=== PATIENT | female | born 1945 | race Caucasian/White ===

== ENCOUNTER 2018-09-08 18:42 | Inpatient (IN) ==
[2018-09-08 19:38] LABS: Alanine Aminotransferase 36 U/L (10-53); Albumin 3.7 g/dL (3.4-5.0); Anion Gap 9 meq/L (5-15); Aspartate Aminotransferase 24 U/L (15-37); Blood Urea Nitrogen 10 mg/dL (7-18); Calcium 8.4 mg/dL (8.5-10.1); Carbon Dioxide 25.7 meq/L (21.0-32.0); Chloride 104 meq/L (98-107); Glomerular Filtration Rate 56 mL/min (>89); Glucose,Random 122 mg/dL (74-106); Potassium 3.6 meq/L (3.5-5.1); Sodium 139 meq/L (136-145)
[2018-09-08 19:41] LABS: Alkaline Phosphatase 75 U/L (45-117); Total Protein 7.4 g/dL (6.4-8.2)
--- NOTE | 2018-09-08 19:48 | ED ---
HPI General Chief Complaint: Fall Stated Complaint: Fall Time Seen by Provider: 09/08/18 19:02 Source: patient Mode of arrival: EMS Limitations: other (h/o frontal lobe dementia) History of Present Illness HPI Narrative: 72-year-old female with a history of frontal lobe dementia, hypertension, hyperlipidemia presents to the emergency department via [facility] for evaluation of right hip pain that started after a fall from a vehicle today. Her , Paul, assists with the history. He says that they drove down from [place] for [place] just a couple of days ago. He says patient was getting into the car when she fell and landing on her right hip. Both and patient denies trauma elsewhere. Denies back pain, knee pain. Denies numbness or tingling the extremity. EVAC states she was given morphine 10 mg with minimal improvement in pain. There is a questionable history of alcohol consumption however, patient and deny consumption today. MD complaint: Reports fall Onset (ago): hour(s) Fall from: standing Fall witnessed: yes, by family Place fall occurred: street Loss of consciousness: none Prolonged down time: no Symptoms prior to fall: Reports none Context: Reports tripped/slipped Location of injury: Reports pelvis Location of injury - extremities: Right: thigh Severity: severe Quality: Reports aching Associated symptoms (after fall): Reports denies Related Data Home Medications Medication Instructions Recorded Confirmed atorvastatin 10 mg PO DAILY 09/08/18 09/08/18 estradiol [Yuvafem] 10 mcg VAGINAL DAILY 09/08/18 09/08/18 telmisartan 80 mg PO DAILY 09/08/18 09/08/18 Allergies Allergy/AdvReac Type Severity Reaction Status Date / Time No Known Allergies Allergy Verified 09/08/18 19:01 Review of Systems ROS: all other systems reviewed are negative [facility] Medical History Medical History Frontal lobe dementia (Acute) Hyperlipemia (Acute) Surgical History Surgical History History of tonsillectomy (Acute) Social History Social History Smoking Status: Former smoker Tobacco Type: Cigarettes How Often Do You Have a Drink Containing Alcohol: Monthly or less Recent Travel in [facility] within the Last 8 Weeks: No Recent Out of Country Travel within the Last 8 Weeks: No Immunization History Tetanus Immunization: <5 Years Exam Narrative Exam Narrative: GENERAL: WD,WN in mild distress SKIN: Warm and dry. HEAD: Atraumatic. Normocephalic. EYES: Pupils equal and round. No scleral icterus. No injection or drainage. ENT: No nasal bleeding or discharge. Mucous membranes pink and moist. NECK: Trachea midline. No JVD. CARDIOVASCULAR: Regular rate and rhythm. RESPIRATORY: No accessory muscle use. Clear to auscultation. Breath sounds equal bilaterally. GASTROINTESTINAL: Abdomen soft, non-tender, nondistended. Hepatic and splenic margins not palpable. MUSCULOSKELETAL: Extremities without clubbing, cyanosis, or edema. Right lower extremity-externally rotated and slightly shortened, dorsalis pedis pulses present, sensation intact to light touch NEUROLOGICAL: Awake and alert. No obvious cranial nerve deficits. Motor grossly within normal limits. Five out of 5 muscle strength in the arms and legs. Normal speech. Course Initial Documented Vital Signs Temperature 97.4 F L 09/08/18 19:02 Pulse Rate 68 09/08/18 19:02 Respiratory Rate 14 09/08/18 19:02 Blood Pressure 110/89 09/08/18 19:02 Last Documented Vital Signs Temperature 97.4 F L 09/08/18 19:02 Pulse Rate 80 09/08/18 21:41 Respiratory Rate 19 09/08/18 21:41 Blood Pressure 120/62 09/08/18 21:41 Pulse Oximetry 100 09/08/18 21:41 Medical Decision Making MDM Narrative Medical decision making narrative: 72-year-old female with a history of frontal lobe dementia, hypertension, hyperlipidemia presents to the emergency department for evaluation via [facility] for right hip pain. She states she was getting to the car when she fell and hit her right hip. Denies pain or trauma elsewhere. Denies numbness or tingling the extremity. EVAC gave 10 mg of morphine with minor improvement in pain. As I was evaluating patient, she appeared anxious and her , Paul, agreed. He believed that patient needed a medication to help relax. Ordered 1 mg of Ativan with improvement in patient's symptoms. EKG sinus rhythm rate 91 without STEMI changes. Labs are notable for WBC 11.6, INR 1.0, BUN/creatinine 10/0.97. X-rays consistent with a right comminuted intertrochanteric fracture. I spoke with Dr. Wesley who agreed to the admission. Dr. Armas came to the emergency department to evaluate this patient. He advised n.p.o. after midnight. Patient remains comfortable. Medical Screen Exam Complete: Yes Emergency Medical Condition: Yes Differential Diagnosis Differential Diagnosis: Right intertrochanteric fracture, hip fracture, hip contusion Lab Data Result diagrams: 09/08/18 21:00 09/08/18 19:05 Lab Results 09/08/18 09/08/18 09/08/18 Range/Units 19:05 21:00 21:00 WBC 11.6 H (4.0-11.0) th/mm3 RBC 4.37 (4.00-5.30) mil/mm3 Hgb 13.3 (11.6-15.3) gm/dL Hct 39.8 (35.0-46.0) % MCV 91.1 (80.0-100.0) fL MCH 30.4 (27.0-34.0) pg MCHC 33.4 (32.0-36.0) % RDW 12.7 (11.6-17.2) % Plt Count 262 (150-450) th/mm3 MPV 8.5 (7.0-11.0) fL Neut % (Auto) 85.4 H (16.0-70.0) % Lymph % (Auto) 7.6 L (9.0-44.0) % [place] % (Auto) 6.1 (0.0-8.0) % Eos % (Auto) 0.6 (0.0-4.0) % Baso % (Auto) 0.3 (0.0-2.0) % Neut # (Auto) 9.9 H (1.8-7.7) th/mm3 Lymph # (Auto) 0.9 L (1.0-4.8) th/mm3 [place] # (Auto) 0.7 (0.0-0.9) th/mm3 Eos # (Auto) 0.1 (0.0-0.4) th/mm3 Baso # (Auto) 0.0 (0.0-0.2) th/mm3 WBC Differential . Differential Comment Auto diff final PT 10.1 (9.8-11.6) sec INR 1.0 Ratio APTT 20.4 L (24.3-30.1) sec Sodium 139 (136-145) meq/L Potassium 3.6 (3.5-5.1) meq/L Chloride 104 (98-107) meq/L Carbon Dioxide 25.7 (21.0-32.0) meq/L Anion Gap 9 (5-15) meq/L BUN 10 (7-18) mg/dL Creatinine 0.97 (0.50-1.00) mg/dL Estimated GFR 56 L (>89) mL/min Random Glucose 122 H (74-106) mg/dL Calcium 8.4 L (8.5-10.1) mg/dL Total Bilirubin 0.7 (0.2-1.0) mg/dL AST 24 (15-37) U/L ALT 36 (10-53) U/L Alkaline Phosphatase 75 (45-117) U/L Total Protein 7.4 (6.4-8.2) g/dL Albumin 3.7 (3.4-5.0) g/dL Imaging Data Radiologist's impression: Chest X-Ray 09/08/18 19:01 CONCLUSION: 1. Linear atelectasis/scarring in the left lingula. 2. Lungs are otherwise clear. Femur X-Ray 09/08/18 19:02 CONCLUSION: Comminuted intratrochanteric fracture of the right hip. Pelvis X-Ray 09/08/18 19:02 CONCLUSION: 1. Comminuted intratrochanteric fracture of the right hip. 2. Pelvis itself is intact. Discharge Plan Discharge Disposition Patient Disposition: 30 Still Patient Discharge Condition Condition: Stable Discharge Details Diagnosis: Closed intertrochanteric fracture Physicians Team ED Provider: Ariadna Siu ED Midlevel Provider: Cait Grace Attending Provider: Jimena Pepe Status ED Status: Admitted Patient
--- NOTE | 2018-09-08 19:55 | XR ---
EXAM DATE: 09/08/2018 7:01 PM EDT AGE/SEX: 72 years / Female INDICATIONS: Evaluate for pneumonia, pneumothorax, or communicable disease. Pre op hip surgery. CLINICAL DATA: This is the patient's initial encounter. Patient reports that signs and symptoms have been present for 1 day and indicates a pain score of 0/10. MEDICAL/SURGICAL HISTORY: None. None. COMPARISON: No prior exams available for comparison. FINDINGS: A single AP view of the chest demonstrates the lungs to be symmetrically aerated with some linear ate lectasis or scarring in the left lingula. Lungs are otherwise clear. The cardiomediastinal contours are unremarkable. Osseous structures are intact. CONCLUSION: 1. Linear atelectasis/scarring in the left lingula. 2. Lungs are otherwise clear. Electronically signed by: Gumaro Gomez MD 09/08/2018 7:53 PM EDT
--- NOTE | 2018-09-08 20:02 | XR ---
EXAM DATE: 09/08/2018 7:02 PM EDT AGE/SEX: 72 years / Female INDICATIONS: Right femur pain after fall. CLINICAL DATA: This is the patient's initial encounter. Patient reports that signs and symptoms have been present for 1 day and indicates a pain score of 10/10. MEDICAL/SURGICAL HISTORY: None. None. COMPARISON: [facility], PELVIS AP 1V, 09/08/2018. . FINDINGS: Comminuted intratrochanteric fracture of the right hip. Femoral acetabular articulation is preserved. . CONCLUSION: Comminuted intratrochanteric fracture of the right hip. Electronically signed by: Gumaro Gomez MD 09/08/2018 8:01 PM EDT
--- NOTE | 2018-09-08 20:03 | XR ---
EXAM DATE: 09/08/2018 7:02 PM EDT AGE/SEX: 72 years / Female INDICATIONS: Pelvic pain after fall. CLINICAL DATA: This is the patient's initial encounter. Patient reports that signs and symptoms have been present for 1 day and indicates a pain score of 10/10. MEDICAL/SURGICAL HISTORY: None. None. COMPARISON: No prior exams available for comparison. FINDINGS: Comminuted intratrochanteric fracture of the right hip. Right femoral acetabular articulation is pres erved. Cortical margins of the pelvis are intact. There is an ossific well-corticated fragment of gre ater trochanter on the left probably representing an old avulsion injury or ossific tendinopathy CONCLUSION: 1. Comminuted intratrochanteric fracture of the right hip. 2. Pelvis itself is intact. Electronically signed by: Gumaro Gomez MD 09/08/2018 8:02 PM EDT
[2018-09-08 21:33] LABS: Baso % (Auto) 0.3 % (0.0-2.0); Eos # (Auto) 0.1 th/mm3 (0.0-0.4); Eos % (Auto) 0.6 % (0.0-4.0); Hematocrit 39.8 % (35.0-46.0); Hemoglobin 13.3 gm/dL (11.6-15.3); Lymph # (Auto) 0.9 th/mm3 (1.0-4.8); Lymph % (Auto) 7.6 % (9.0-44.0); Mean Corpuscular HGB Conc 33.4 % (32.0-36.0); Mean Corpuscular Hemoglobin 30.4 pg (27.0-34.0); Mean Corpuscular Volume 91.1 fL (80.0-100.0); Mean Platelet Volume 8.5 fL (7.0-11.0); Mono # (Auto) 0.7 th/mm3 (0.0-0.9); Mono % (Auto) 6.1 % (0.0-8.0); Neut # (Auto) 9.9 th/mm3 (1.8-7.7); Neut % (Auto) 85.4 % (16.0-70.0); Platelet Count 262 th/mm3 (150-450); Red Blood Count 4.37 mil/mm3 (4.00-5.30); Red Cell Distribution Width 12.7 % (11.6-17.2); White Blood Count 11.6 th/mm3 (4.0-11.0)
[2018-09-08 21:45] LABS: Prothrombin Time 10.1 sec (9.8-11.6)
[2018-09-08 21:49] LABS: Activated Partial Thrombo Time 20.4 sec (24.3-30.1)
[2018-09-08] MEDS ORDERED: Acetaminophen 325 MG Tablet PO PRN (22:18)
[2018-09-08] MEDS ORDERED: Bisacodyl 10 MG Supp RECTAL PRN (22:18)
[2018-09-08] MEDS ORDERED: Morphine Inj 4 MG/ML Vial IV.PUSH PRN (22:19)
--- NOTE | 2018-09-08 22:20 | P.HPIM ---
History of Present Illness Primary Care Physician: JORDI ALEMAN History of Present Illness: This is a 72-year-old female with a PMH of HTN, Hyperlipidemia and Dementia who was brought to the ER by EMS for right hip pain after a fall. Pt poor historian due to underlying dementia. Per at bedside, they are [place] from out of town for a [place] and pt had fall while getting out of the car. No reported LOC or head trauma. On arrival, P1 , HR 68, O2 sat 100% on 2L NC, Afebrile. WBC 11.6. INR 1.0. Chemistry essentially unremarkable except for GFR 56. CXR linear atelectasis/scarring in left lingula. X-ray comminuted intertrochanteric fracture right hip. Pelvis X-ray pelvis intact, right hip fracture. S/p eval by Dr. Armas, plan is for surgical intervention in am. - Diagnosis (1) Fall (2) Hip fracture, right (3) Leukocytosis (4) Dementia Review of Systems PAST FAMILY HISTORY: Reviewed. 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 - Medical History Medical History: Medical History (Last Reviewed 09/08/18 @ 19:47 by NORBERT Post) Frontal lobe dementia Hyperlipemia - Surgical History Surgical History: Surgical History (Last Updated 09/08/18 @ 19:05 by Nichole Bergman) History of tonsillectomy - Tobacco History Smoking Status: Former smoker Tobacco Type: Cigarettes - Alcohol History How Often Do You Have a Drink Containing Alcohol: Monthly or less - Travel History Recent Travel in the [place] Within the Last 8 Weeks: No Recent Travel Out of the Country Within the Last 8 Weeks: No - Immunization History Tetanus Immunization: <5 Years Medications and Allergies Active Medications: Active Medications Sodium Chloride (Ns Flush) 2 ml IV.FLUSH UNSCH PRN PRN Reason: FLUSH AFTER USING IV ACCESS Allergies Allergy/AdvReac Type Severity Reaction Status Date / Time No Known Allergies Allergy Verified 09/08/18 19:01 Home Medications Medication Instructions Recorded Confirmed Type atorvastatin 10 mg PO DAILY 09/08/18 09/08/18 History estradiol [Yuvafem] 10 mcg VAGINAL DAILY 09/08/18 09/08/18 History telmisartan 80 mg PO DAILY 09/08/18 09/08/18 History Exam Vital signs: Vital Signs 09/08/18 19:02 09/08/18 21:41 Temperature 97.4 F L Pulse Rate 68 80 Respiratory Rate 14 19 Blood Pressure 110/89 120/62 Pulse Oximetry 100 Intake & Output 09/08/18 09/08/18 09/09/18 06:59 18:59 06:59 Weight 76.81 kg Narrative: PE: GENERAL: Elderly white female in no acute distress, lethargic after receiving Ativan. SKIN: Focused skin assessment warm and dry. HEENT: PERRLA, EOMI. No scleral icterus or conjunctival pallor. No lid lag or facial droop. CARDIOVASCULAR: Regular rate and rhythm. No obvious murmurs to auscultation. No chest tenderness to palpation. RESPIRATORY: No obvious rhonchi or wheezing. Clear to auscultation. Breath sounds equal bilaterally. GASTROINTESTINAL: Abdomen soft, non-tender, nondistended. BS normal. MUSCULOSKELETAL: Extremities without clubbing, cyanosis, or edema. No obvious deformities. Decreased ROM of RLE due to injury. NEUROLOGICAL: Lethargic after medication. No focal neurologic deficits. Moving both upper and lower extremities spontaneously. PSYCHIATRIC: Appropriate mood and affect. Insight and judgment normal. Results - Labs CBC & Chem 7: 09/08/18 21:00 09/08/18 19:05 Labs: Short CBC 09/08/18 Range/Units 21:00 WBC 11.6 H (4.0-11.0) th/mm3 Hgb 13.3 (11.6-15.3) gm/dL Hct 39.8 (35.0-46.0) % Plt Count 262 (150-450) th/mm3 BMP 09/08/18 19:05 Sodium 139 Potassium 3.6 Chloride 104 Carbon Dioxide 25.7 BUN 10 Creatinine 0.97 Calcium 8.4 L Liver Function 09/08/18 Range/Units 19:05 Total Bilirubin 0.7 (0.2-1.0) mg/dL AST 24 (15-37) U/L ALT 36 (10-53) U/L Alkaline Phosphatase 75 (45-117) U/L Albumin 3.7 (3.4-5.0) g/dL - Imaging Impressions Chest X-Ray 09/08/18 19:01 CONCLUSION: 1. Linear atelectasis/scarring in the left lingula. 2. Lungs are otherwise clear. Femur X-Ray 09/08/18 19:02 CONCLUSION: Comminuted intratrochanteric fracture of the right hip. Pelvis X-Ray 09/08/18 19:02 CONCLUSION: 1. Comminuted intratrochanteric fracture of the right hip. 2. Pelvis itself is intact. Caprini VTE Risk Assessment Caprini VTE Risk Assessment: No/Low Risk (score <= 1) Caprini Risk Assessment Model: Point Value = 1 Point Value = 2 Point Value = 3 Point Value = 5 Age 41-60 Minor surgery BMI > 25 kg/m2 Swollen legs Varicose veins or History of unexplained or recurrent spontaneous Oral contraceptives or hormone replacement Sepsis (< 1 month) Serious lung disease, including pneumonia (< 1 month) Abnormal pulmonary function Acute myocardial infarction Congestive heart failure (< 1 month) History of inflammatory bowel disease Medical patient at bed rest Age 61-74 Arthroscopic surgery Major open surgery (> 45 min) Laparoscopic surgery (> 45 min) Malignancy Confined to bed (> 72 hours) Immobilizing plaster cast Central venous access Age >= 75 History of VTE Family history of VTE Factor V Leiden Prothrombin [id number] Lupus anticoagulant Anticardiolipin antibodies Elevated serum homocysteine Heparin-induced thrombocytopenia Other congenital or acquired thrombophilia Stroke (< 1 month) Elective arthroplasty Hip, pelvis, or leg fracture Acute spinal cord injury (< 1 month) Prophylaxis Regimen: Total Risk Factor Score Risk Level Prophylaxis Regimen 0-1 Low Early ambulation 2 Moderate Order ONE of the following: *Sequential Compression Device (SCD) *Heparin 5000 units SQ BID 3-4 Higher Order ONE of the following medications: *Heparin 5000 units SQ TID *Enoxaparin/Lovenox 40 mg SQ daily (WT < 150 kg, CrCl > 30 mL/min) *Enoxaparin/Lovenox 30 mg SQ daily (WT < 150 kg, CrCl > 10-29 mL/min) *Enoxaparin/Lovenox 30 mg SQ BID (WT < 150 kg, CrCl > 30 mL/min) AND/OR *Sequential Compression Device (SCD) 5 or more Highest Order ONE of the following medications: *Heparin 5000 units SQ TID (Preferred with Epidurals) *Enoxaparin/Lovenox 40 mg SQ daily (WT < 150 kg, CrCl > 30 mL/min) *Enoxaparin/Lovenox 30 mg SQ daily (WT < 150 kg, CrCl > 10-29 mL/min) *Enoxaparin/Lovenox 30 mg SQ BID (WT < 150 kg, CrCl > 30 mL/min) AND *Sequential Compression Device (SCD) Assessment and Plan - Assessment (1) Fall Code(s): W19.XXXA - Unspecified fall, initial encounter Status: Acute (2) Hip fracture, right Code(s): S72.001A - Fracture of unspecified part of neck of right femur, initial encounter for closed fracture Status: Acute (3) Leukocytosis Code(s): D72.829 - Elevated white blood cell count, unspecified Status: Acute (4) Dementia Code(s): F03.90 - Unspecified dementia without behavioral disturbance Status: Acute - Plan A/P: 1. Fall: s/p mechanical fall while getting out of a vehicle, no reported LOC or head trauma, no other injuries noted. 2. Right Hip Fx: secondary to above, Femur X-ray w/ comminuted intratrochanteric right hip fx, images reviewed. Pelvis X-ray intact pelvis. S /p eval by Dr. Armas, plan is for surgical intervention in am, at bedside providing consent. NPO, IVF, analgesics/antiemetics. Pre-op labs reviewed and unremarkable, CXR w/ no significant abnormalities, images reviewed. 3. Leukocytosis: WBC 11.4, likely secondary to fall/fracture, no signs of infection, repeat labs in am. 4. Dementia: h/o frontal lobe dementia, at baseline per . Ativan prn 5. DVT Prophylaxis: Anticoagulation post op 6. Social work for d/c planning as needed. 7. Case discussed w/ ER physician at length, labs/records/imaging reviewed by me.
[2018-09-09] MEDS: Sod Chloride 0.9% Inj 1,000 ML IV.CONT SCH ×3 (00:30→18:54)
[2018-09-09 07:07] LABS: Baso % (Auto) 0.4 % (0.0-2.0); Eos % (Auto) 0.3 % (0.0-4.0); Hematocrit 34.5 % (35.0-46.0); Hemoglobin 11.9 gm/dL (11.6-15.3); Lymph # (Auto) 0.8 th/mm3 (1.0-4.8); Lymph % (Auto) 11.4 % (9.0-44.0); Mean Corpuscular HGB Conc 34.4 % (32.0-36.0); Mean Corpuscular Hemoglobin 30.7 pg (27.0-34.0); Mean Corpuscular Volume 89.3 fL (80.0-100.0); Mean Platelet Volume 8.2 fL (7.0-11.0); Mono # (Auto) 0.7 th/mm3 (0.0-0.9); Neut # (Auto) 5.4 th/mm3 (1.8-7.7); Neut % (Auto) 77.9 % (16.0-70.0); Platelet Count 233 th/mm3 (150-450); Red Blood Count 3.86 mil/mm3 (4.00-5.30); Red Cell Distribution Width 12.9 % (11.6-17.2); White Blood Count 6.9 th/mm3 (4.0-11.0)
[2018-09-09 07:19] LABS: Albumin 3.2 g/dL (3.4-5.0); Anion Gap 9 meq/L (5-15); Aspartate Aminotransferase 18 U/L (15-37); Blood Urea Nitrogen 12 mg/dL (7-18); Calcium 8.2 mg/dL (8.5-10.1); Carbon Dioxide 25.6 meq/L (21.0-32.0); Chloride 107 meq/L (98-107); Glomerular Filtration Rate 71 mL/min (>89); Glucose,Random 120 mg/dL (74-106); Potassium 3.8 meq/L (3.5-5.1); Sodium 142 meq/L (136-145)
[2018-09-09 07:20] LABS: Alanine Aminotransferase 29 U/L (10-53)
[2018-09-09 07:22] LABS: Alkaline Phosphatase 60 U/L (45-117); Total Protein 6.3 g/dL (6.4-8.2)
--- NOTE | 2018-09-09 07:48 | P.PN ---
Subjective Interval history: Follow-up on patient with right hip fracture. Patient seen and examined. Patient is currently n.p.o. for orthopedic surgery. She is complaining of significant right hip pain. She denies any other acute medical complaints. Physical Exam Vital signs: Vital Signs 09/08/18 19:02 09/08/18 21:41 09/08/18 23:26 Temperature 97.4 F L Pulse Rate 68 80 Respiratory Rate 14 19 15 Blood Pressure 110/89 120/62 Pulse Oximetry 100 09/09/18 00:00 09/09/18 03:36 09/09/18 04:00 Temperature 97.8 F 97.4 F L Pulse Rate 95 H 84 89 Respiratory Rate 18 21 Blood Pressure 119/70 112/68 Pulse Oximetry 97 97 Intake & Output 09/08/18 09/09/18 09/09/18 18:59 06:59 18:59 Weight 76.81 kg Other: Weight On Admission 76.81 kg Narrative: GENERAL: WDWN female patient, INAD. Awake and alert. SKIN: Warm and dry. No rash. HEENT: Atraumatic. Normocephalic. Pupils equal and round. No scleral icterus. No injection or drainage. No nasal bleeding or discharge. Mucous membranes pink and moist. NECK: Trachea midline. CARDIOVASCULAR: Regular rate and rhythm. RESPIRATORY: No accessory muscle use. Clear to auscultation. Breath sounds equal bilaterally. GASTROINTESTINAL: Abdomen soft, non-tender, nondistended. Hepatic and splenic margins not palpable. MUSCULOSKELETAL: Extremities without clubbing, cyanosis, or edema. RLE shortened and rotated. ROM not tested due to patient discomfort. NV intact distally. NEUROLOGICAL: Awake and alert. No obvious cranial nerve deficits. Motor grossly within normal limits except for limited exam RLE. Normal speech. PSYCHIATRIC: Appropriate mood and affect; insight and judgment normal. Results - Labs CBC & Chem 7: 09/09/18 05:41 09/09/18 05:41 Laboratory Results - last 24 hr 09/08/18 09/08/18 09/08/18 19:05 21:00 21:00 WBC 11.6 H RBC 4.37 Hgb 13.3 Hct 39.8 MCV 91.1 MCH 30.4 MCHC 33.4 RDW 12.7 Plt Count 262 MPV 8.5 Neut % (Auto) 85.4 H Lymph % (Auto) 7.6 L [place] % (Auto) 6.1 Eos % (Auto) 0.6 Baso % (Auto) 0.3 Neut # (Auto) 9.9 H Lymph # (Auto) 0.9 L [place] # (Auto) 0.7 Eos # (Auto) 0.1 Baso # (Auto) 0.0 WBC Differential . Differential Comment Auto diff final PT 10.1 INR 1.0 APTT 20.4 L Sodium 139 Potassium 3.6 Chloride 104 Carbon Dioxide 25.7 Anion Gap 9 BUN 10 Creatinine 0.97 Estimated GFR 56 L Random Glucose 122 H Calcium 8.4 L Total Bilirubin 0.7 AST 24 ALT 36 Alkaline Phosphatase 75 Total Protein 7.4 Albumin 3.7 09/09/18 09/09/18 05:41 05:41 WBC 6.9 RBC 3.86 L Hgb 11.9 Hct 34.5 L MCV 89.3 MCH 30.7 MCHC 34.4 RDW 12.9 Plt Count 233 MPV 8.2 Neut % (Auto) 77.9 H Lymph % (Auto) 11.4 [place] % (Auto) 10.0 H Eos % (Auto) 0.3 Baso % (Auto) 0.4 Neut # (Auto) 5.4 Lymph # (Auto) 0.8 L [place] # (Auto) 0.7 Eos # (Auto) 0.0 Baso # (Auto) 0.0 WBC Differential . Differential Comment Auto diff final PT INR APTT Sodium 142 Potassium 3.8 Chloride 107 Carbon Dioxide 25.6 Anion Gap 9 BUN 12 Creatinine 0.80 Estimated GFR 71 L Random Glucose 120 H Calcium 8.2 L Total Bilirubin 0.8 AST 18 ALT 29 Alkaline Phosphatase 60 Total Protein 6.3 L D Albumin 3.2 L - Imaging Impressions Chest X-Ray 09/08/18 19:01 CONCLUSION: 1. Linear atelectasis/scarring in the left lingula. 2. Lungs are otherwise clear. Femur X-Ray 09/08/18 19:02 CONCLUSION: Comminuted intratrochanteric fracture of the right hip. Pelvis X-Ray 09/08/18 19:02 CONCLUSION: 1. Comminuted intratrochanteric fracture of the right hip. 2. Pelvis itself is intact. Assessment and Plan - Assessment (1) Fall Code(s): W19.XXXA - Unspecified fall, initial encounter Status: Acute (2) Hip fracture, right Code(s): S72.001A - Fracture of unspecified part of neck of right femur, initial encounter for closed fracture Status: Acute (3) Leukocytosis Code(s): D72.829 - Elevated white blood cell count, unspecified Status: Acute (4) Dementia Code(s): F03.90 - Unspecified dementia without behavioral disturbance Status: Acute - Plan 72-year-old female with a PMH of HTN, Hyperlipidemia and Dementia who was brought to the ER by EMS for right hip pain after a fall. Right intratrochanteric hip fracture X-rays of the right hip reveal comminuted intratrochanteric hip fracture, pelvis intact -Orthopedic service consulted, appreciate assistance -Keep n.p.o. -IVF -Pain management with bowel regimen s/p fall Patient reports mechanical fall while getting out of the vehicle No reported loss of consciousness or head trauma -PT eval/tx Leukocytosis, suspect reactive Patient is afebrile, does not appear toxic -Resolved Hypertension -continue on Cozaar -monitor BP and adjust treatment accordingly Dementia History of frontal lobe dementia -At baseline -Monitor DVT prophylaxis -Chemical prophylaxis contraindicated at this time secondary to upcoming surgical procedure -Postop anticoagulation per Ortho service Code Status: Full Discussed Condition With: patient, nursing staff, Dr. Espinoza
[2018-09-09] MEDS ORDERED: Bupivacaine/Epinephrine Inj 0.25% 50 ML Vial ONE (07:59)
[2018-09-09] MEDS ORDERED: Metoprolol Tartrate 25 MG Tablet PO ONE (08:38)
[2018-09-09] MEDS ORDERED: Chlorhexidine Gluconate 2% 1 Pack (2 Cloths) TOPICAL ONE (08:38)
[2018-09-09] MEDS ORDERED: Sodium Chlor 0.9% Inj 500 ML IV.SIG SCH (09:00)
[2018-09-09] MEDS ORDERED: Lidocaine PF 1% Inj 5 ML Syringe OTHER ONE (09:35)
[2018-09-09] MEDS ORDERED: Glycopyrrolate Inj 1 MG/5 ML Syringe IV.PUSH ONE (09:35)
[2018-09-09] MEDS ORDERED: Neostigmine Inj 5 MG/5 ML Syringe IV.PUSH ONE (09:35)
[2018-09-09] MEDS ORDERED: Phenylephrine/NS 1000 MCG/10ML Syringe IV.PUSH ONE (09:35)
--- NOTE | 2018-09-09 10:52 | P.OP ---
- Preoperative Diagnosis (1) Closed intertrochanteric fracture Date of procedure: 09/09/18 Procedure: Right hip reduction and intramedullary nail fixation Anesthesia: OMAIRA Surgeon: Jayy Potter MD Data Center Consultant: CAIT Pike PA-C The surgical procedure was assisted by my physician assistant kitchen manager. My P.A. presence was necessary throughout this case for the manipulation and positioning of the surgical extremity. My P.A. was assisting me throughout the duration of this procedure. The skill set of a physician assistant kitchen manager was medically necessary to complete this procedure. During the surgical case the cardiovascular surgical tech was working at the back table and the physician assistant kitchen manager was directly assisting me. Operation and Findings: Implants used: [11.5]mm x [380]mm Senait troch nail Plan of activity: Weight-bear as tolerated Patient was seen and evaluated preoperatively. The patient has significant hip pain from proximal femur fracture. The risk and benefits of surgery were discussed in depth with the patient to include bleeding, infection, nonunion, malunion, need for hip replacement, painful hardware, as well as medical competitions including blood clots, stroke, heart attack, and . Informed consent was obtained. Operative site was marked. Patient was brought to the operating room and placed on fracture table. IV sedation was administered by anesthesiologist. Timeout procedure was performed. Hip and leg were prepped with alcohol followed by DuraPrep and draped in the usual sterile fashion. IV antibiotics were given prior to incision. Procedure began with reduction of fracture. Traction was applied. The leg was manipulated to achieve reduction. There was an intertrochanteric fracture extending down to the subtrochanteric region. Excellent reduction was achieved. Fluoroscopy was used to confirm reduction. A three inch incision was made proximal to the trochanter. Subcutaneous tissue was dissected bluntly. Guidepin was placed at the tip of the trochanter and advanced into the femoral canal. Fluoroscopy confirmed appropriate guidepin placement. A opening reamer was placed over the guidepin. A long ball tipped guide pin was now placed down the femoral canal into the center of the distal femur. The nail length was now measured. Fluoroscopy confirmed appropriate guidepin placement. Flexible reamers were now passed over the guidepin to ream the intramedullary canal. The nail was attached to the insertion handle. Nail was now placed over the guidepin into the femoral canal. Fluoroscopy confirmed appropriate nail placement. A second incision was made over the lateral thigh. Cannulas were placed through the insertion handle down to the femur. Guidepin was now placed through the femoral nail into the center of the femoral head. Fluoroscopy confirmed appropriate guidepin placement. Screw length was measured. Cannulated drill was placed over the guidepin. Appropriate length lag screw was now placed. Traction was released and compression was applied. The set screw was now tightened in dynamic mode. Next, using perfect [place] technique two distal interlocking screws were placed. Screw holes were predrilled and screw lengths were measured. Final fluoroscopy revealed well aligned fracture with well-placed hardware. Incision was closed with 3-0 Vicryl and lindsey. Sterile dressings were applied. Patient was awakened and transferred to recovery room.
--- NOTE | 2018-09-09 10:56 | P.CONOP ---
[facility] Orthopedics Consult Note - [facility] Consult date: 09/09/18 Chief complaint: Right Intertrochanteric Fracture Narrative: Zoë is a 72-year-old female. She lives out of town but was here for a class reunion. She was getting out of her car when she fell. She is with her . She does have a history of hypertension, high cholesterol, and some dementia. She is currently awake and alert on the orthopedic floor. She complains of right hip pain. Pain is severe and intense with any motion. She denies dizziness, syncope, or loss of consciousness. Her only complaint is right hip pain. She denies any pain prior to her fall. She has been unable to stand or ambulate since she fell. Pain is improved with rest. Review of Systems Patient denies fevers, chills, weight loss, headache, visual changes, hearing loss, chest pain, palpitations, shortness of breath, nausea, vomiting, no urinary changes, diarrhea, bowel changes, neck pain, back pain, skin rashes, weakness of extremities, easy bleeding, enlarged lymph nodes, numbness of extremities, anxiety, or depression. She complains of right hip pain Patient's social history, past medical history, and family history were reviewed on chart and with patient. [facility] - History History Provided By: Patient - Medical History Medical History: Medical History (Last Reviewed 09/09/18 @ 10:54 by Jayy Potter MD) Frontal lobe dementia Hyperlipemia - Surgical History Surgical History: Surgical History (Last Reviewed 09/09/18 @ 10:54 by Jayy Potter MD) History of tonsillectomy - Family History Family History: Family History (Last Updated 09/09/18 @ 10:54 by Jayy Potter MD) Other Family history non-contributory - Social History I have reviewed the patient's Social History: Yes - Tobacco History Smoking Status: Former smoker Tobacco Type: Cigarettes - Alcohol History How Often Do You Have a Drink Containing Alcohol: Monthly or less - Substance Use History Substance History: No History of Abuse - Travel History Recent Travel in the [place] Within the Last 8 Weeks: No Recent Travel Out of the Country Within the Last 8 Weeks: No - Immunization History Tetanus Immunization: <5 Years Medications and Allergies Active Medications: Active Medications Acetaminophen (Tylenol) 650 mg PO Q4H PRN PRN Reason: Temp > 100.4 Hydrocodone Bitart/Acetaminophen ([place] 7.5/325) 1 tab PO Q3H PRN PRN Reason: Pain Scale 3-10 Al Hydroxide/Mg Hydroxide (Milk Of Magnesia Liq) 30 ml PO Q12H PRN PRN Reason: Mild Constipation Atorvastatin Calcium (Lipitor) 10 mg PO DAILY [facility] Bisacodyl (Dulcolax Supp) 10 mg RECTAL DAILY PRN PRN Reason: SEVERE CONSITIPATION Calcium/Vitamin D (Oscal With D 250/125 Mg) 1 tab PO TID [facility] Diphenhydramine HCl (Benadryl) 25 mg PO Q6H PRN PRN Reason: ITCHING Enoxaparin Sodium (Lovenox Inj) 40 mg SQ DAILY [facility] Ergocalciferol (Vitamin D2) 50,000 unit PO ONCE ONE Stop: 09/09/18 10:48 Sodium Chloride (Ns Inj) 1,000 mls @ 100 mls/hr IV.CONT .Q10H [facility] Last Admin: 09/09/18 00:30 Dose: 100 mls/hr Lactated Ringer's (Lr 1000 Ml Inj) 1,000 mls @ 30 mls/hr IV.SIG .Q24H [facility] Stop: 09/10/18 08:44 Sodium Chloride (Ns Inj) 500 mls @ 30 mls/hr IV.SIG .Q10H [facility] Cefazolin Sodium 1,000 mg/ (Sodium Chloride) 100 mls @ 200 mls/hr IV.SIG Q8H [facility] Stop: 09/10/18 03:29 Lactulose (Lactulose Liq) 30 ml PO DAILY PRN PRN Reason: SEVERE CONSITIPATION Losartan Potassium (Cozaar) 100 mg PO DAILY [facility] Miscellaneous Information (Misc Post-Op Orders (For Pharmacy)) 0 each OTHER STAT STA Stop: 09/09/18 10:48 Morphine Sulfate (Morphine Inj) 2 mg IV.PUSH Q4H PRN PRN Reason: PAIN 6-10 Ondansetron HCl (Zofran Inj) 4 mg IV.PUSH Q6H PRN PRN Reason: NAUSEA OR VOMITING Senna/Docusate Sodium (Amanda-Colace) 1 tab PO BID [facility] Sennosides (Senokot) 17.2 mg PO Q12H PRN PRN Reason: Moderate Constipation Sodium Chloride (Ns Flush) 2 ml IV.FLUSH UNSCH PRN PRN Reason: FLUSH AFTER USING IV ACCESS Sodium Chloride (Ns Flush) 2 ml IV.FLUSH BID LEN Sodium Chloride (Ns Flush) 2 ml IV.FLUSH PRN PRN PRN Reason: FLUSH AFTER USING IV ACCESS Vitamin D (Vitamin D3) 5,000 unit PO DAILY [facility]EN Allergies Allergy/AdvReac Type Severity Reaction Status Date / Time No Known Allergies Allergy Verified 09/08/18 19:01 Home Medications Medication Instructions Recorded Confirmed Type atorvastatin 10 mg PO DAILY 09/08/18 09/08/18 History estradiol [Yuvafem] 10 mcg VAGINAL DAILY 09/08/18 09/08/18 History telmisartan 80 mg PO DAILY 09/08/18 09/08/18 History Exam Vital signs: Vital Signs 09/08/18 19:02 09/08/18 21:41 09/08/18 23:26 Temperature 97.4 F L Pulse Rate 68 80 Respiratory Rate 14 19 15 Blood Pressure 110/89 120/62 Pulse Oximetry 100 09/09/18 00:00 09/09/18 03:36 09/09/18 04:00 Temperature 97.8 F 97.4 F L Pulse Rate 95 H 84 89 Respiratory Rate 18 21 Blood Pressure 119/70 112/68 Pulse Oximetry 97 97 Intake & Output 09/08/18 09/09/18 09/09/18 18:59 06:59 18:59 Intake Total 400 / 400 Output Total 75 / 75 Balance 325 / 325 Weight 76.81 kg Intake: Anesthesia Amount 400 / 400 Output: Estimated Blood Loss 75 / 75 Other: Weight On Admission 76.81 kg Narrative: Zoë is a 72-year-old female. She is awake. She appears mildly anxious. She answers questions appropriately. General: Awake and alert. No acute distress. Appears well-developed well- nourished Head: Normocephalic, atraumatic pupils are equal Neck: Soft, nontender, trachea midline Abdomen: Soft, nondistended Examination of right arm reveals no pain or deformity with shoulder, elbow, or wrist motion. Skin is intact. Radial pulse is palpable. Normal capillary refill in fingers. Sensation is intact in radial, ulnar, and median nerve distributions. [employer] strength is +5. No lymphadenopathy noted. Examination of left arm reveals no pain or deformity with shoulder, elbow, or wrist motion. Skin is intact. Radial pulse is palpable. Normal capillary refill in fingers. Sensation is intact in radial, ulnar, and median nerve distributions. [employer] strength is +5. No lymphadenopathy noted. Examination of left lower extremity reveals no pain or deformity with hip, knee , or ankle motion. Skin is intact. Sensation is intact in left foot. Dorsalis pedis pulse is palpable. Normal capillary refill and feet. Thigh and calf compartments are soft. No lymphadenopathy noted. +5 strength of ankle dorsiflexion and plantarflexion. Examination of right lower extremity reveals pain with any hip motion. She is tender to palpation over the proximal femur. She has minimal tenderness around her knee, tibia, or ankle.. Skin is intact. Sensation is intact in right foot. Dorsalis pedis pulse is palpable. Normal capillary refill and feet. Thigh and calf compartments are soft. No lymphadenopathy noted. +5 strength of ankle dorsiflexion and plantarflexion. Results - Labs Result Diagrams: 09/09/18 05:41 09/09/18 05:41 Labs: Laboratory Results - last 24 hr 09/08/18 09/08/18 09/08/18 19:05 21:00 21:00 WBC 11.6 H RBC 4.37 Hgb 13.3 Hct 39.8 MCV 91.1 MCH 30.4 MCHC 33.4 RDW 12.7 Plt Count 262 MPV 8.5 Neut % (Auto) 85.4 H Lymph % (Auto) 7.[address] [place] % (Auto) 6.1 Eos % (Auto) 0.6 Baso % (Auto) 0.3 Neut # (Auto) 9.9 H Lymph # (Auto) 0.[address] [place] # (Auto) 0.7 Eos # (Auto) 0.1 Baso # (Auto) 0.0 WBC Differential . Differential Comment Auto diff final PT 10.1 INR 1.0 APTT 20.4 L Sodium 139 Potassium 3.6 Chloride 104 Carbon Dioxide 25.7 Anion Gap 9 BUN 10 Creatinine 0.97 Estimated GFR 56 L Random Glucose 122 H Calcium 8.4 L Total Bilirubin 0.7 AST 24 ALT 36 Alkaline Phosphatase 75 Total Protein 7.4 Albumin 3.7 09/09/18 09/09/18 05:41 05:41 WBC 6.9 RBC 3.86 L Hgb 11.9 Hct 34.5 L MCV 89.3 MCH 30.7 MCHC 34.4 RDW 12.9 Plt Count 233 MPV 8.2 Neut % (Auto) 77.9 H Lymph % (Auto) 11.4 [place] % (Auto) 10.0 H Eos % (Auto) 0.3 Baso % (Auto) 0.4 Neut # (Auto) 5.4 Lymph # (Auto) 0.[address] [place] # (Auto) 0.7 Eos # (Auto) 0.0 Baso # (Auto) 0.0 WBC Differential . Differential Comment Auto diff final PT INR APTT Sodium 142 Potassium 3.8 Chloride 107 Carbon Dioxide 25.6 Anion Gap 9 BUN 12 Creatinine 0.80 Estimated GFR 71 L Random Glucose 120 H Calcium 8.2 L Total Bilirubin 0.8 AST 18 ALT 29 Alkaline Phosphatase 60 Total Protein 6.3 L D Albumin 3.2 L - Diagnostic results Imaging: Impressions Chest X-Ray 09/08/18 19:01 CONCLUSION: 1. Linear atelectasis/scarring in the left lingula. 2. Lungs are otherwise clear. Femur X-Ray 09/08/18 19:02 CONCLUSION: Comminuted intratrochanteric fracture of the right hip. Pelvis X-Ray 09/08/18 19:02 CONCLUSION: 1. Comminuted intratrochanteric fracture of the right hip. 2. Pelvis itself is intact. Hip x-ray: report reviewed, image reviewed Assessment and Plan - Assessment and Plan Zoë had a fall last night resulting in displaced right proximal femur fractures. X-rays were reviewed. Lab work was also reviewed. I discussed treatment options with patient. At this point I would recommend reduction and intramedullary nail fixation of right femur. The risk and benefits of surgery were discussed in depth with patient. All of her questions were answered. Informed consent was obtained and operative site was marked. I will plan on surgery today. The risk and benefits of surgery were discussed in depth with patient. The risk of surgery include bleeding, infection, injuries to arteries, nerves, or blood vessels, infection, wound complications, nonunion, malunion, painful hardware, and need for further surgery. I also discussed medical complications including blood clots, pneumonia, stroke, heart attack, and . Informed consent was obtained and all questions were answered. N.p.o.--plan on surgery this morning Calcium and vitamin D supplementation Physical therapy consult Follow-up with Dr. Potter in 2 weeks SCDsKEVIN xarelto A mid-level provider in my office (nurse practitioner or physician geriatric nurse assistant) may see this patient on follow-up visits and continue to implement the objectives of this plan including: Starting or adjusting medications, injections , cast application, orthotics, brace application, physical therapy, radiological studies (including x-ray, MRI, CT, ultrasound, bone scan), vascular studies, neurologic studies, specialist consultation, and proceeding with surgical management, as appropriate.
[2018-09-09] MEDS ORDERED: Post-op Orders (for Pharmacy) OTHER STA (11:03)
[2018-09-09] MEDS ORDERED: fentaNYL Citrate Inj 100 MCG/2 ML Ampul ONE (11:10)
[2018-09-09] MEDS ORDERED: *Meperidine Inj 25 MG/ML Vial PERIprocedural Use ONLY ONE (11:10)
[2018-09-09] MEDS ORDERED: *morphine SULFATE 4 MG/ML PERIprocedure ONLY ONE ×3 (11:30→12:05)
[2018-09-09] MEDS: Senna/Docusate Sodium 8.6/50 MG Tablet PO SCH ×2 (11:44→20:08)
[2018-09-09] MEDS ORDERED: *Promethazine Inj 25 MG/ML Vial PERIprocedural use ONLY ONE (12:19)
--- NOTE | 2018-09-09 13:08 | XR ---
EXAM DATE: 09/09/2018 1:04 PM EDT AGE/SEX: 72 years / Female INDICATIONS: ORIF right femur fracture. CLINICAL DATA: This is the patient's subsequent encounter. Patient reports that signs and symptoms h ave been present for 1 day and indicates a pain score of Nonresponsive. MEDICAL/SURGICAL HISTORY: Non-responsive. Non-responsive. COMPARISON: [facility] [place], FEMUR RIGHT 2V, 09/08/2018. . FINDINGS: Compression screw and intramedullary barrett placement. Hardware appears well-positioned with near-anatom ic alignment and some residual angulation at the distal fracture. No additional new fractures. CONCLUSION: 1. Status post right femoral ORIF, as above. Electronically signed by: Daniel Sprague MD 09/09/2018 1:07 PM EDT
[2018-09-09] MEDS: Calcium/Vitamin D 250/125 MG Tablet PO SCH ×2 (13:16→17:29)
--- NOTE | 2018-09-09 14:09 | ECG ---
Date Performed: 09/08/2018 Time Performed: 22:14:18 PTAGE: 72 years EKG: Sinus rhythm NORMAL ECG NO PREVIOUS TRACING DOCTOR: Chase Cadena Interpretating Date/Time 09/09/2018 14:06:10
[2018-09-09] MEDS: ceFAZolin 1 GM Premix Inj 1 GM/50 ML FROZ.PIGGY IV.SIG SCH (17:19)
[2018-09-10] MEDS: ceFAZolin 1 GM Premix Inj 1 GM/50 ML FROZ.PIGGY IV.SIG SCH ×2 (01:51→10:23)
[2018-09-10 05:04] LABS: Hematocrit 25.3 % (35.0-46.0); Hemoglobin 8.9 gm/dL (11.6-15.3); Mean Corpuscular HGB Conc 35.1 % (32.0-36.0); Mean Corpuscular Hemoglobin 31.6 pg (27.0-34.0); Mean Platelet Volume 8.4 fL (7.0-11.0); Platelet Count 157 th/mm3 (150-450); Red Blood Count 2.81 mil/mm3 (4.00-5.30); Red Cell Distribution Width 12.8 % (11.6-17.2); White Blood Count 6.6 th/mm3 (4.0-11.0)
[2018-09-10 05:05] LABS: Baso % (Auto) 0.2 % (0.0-2.0); Eos % (Auto) 0.1 % (0.0-4.0); Lymph # (Auto) 0.8 th/mm3 (1.0-4.8); Lymph % (Auto) 12.5 % (9.0-44.0); Mono # (Auto) 0.7 th/mm3 (0.0-0.9); Neut # (Auto) 5.1 th/mm3 (1.8-7.7); Neut % (Auto) 77.2 % (16.0-70.0)
[2018-09-10 05:36] LABS: Calcium 7.8 mg/dL (8.5-10.1); Carbon Dioxide 27.2 meq/L (21.0-32.0); Potassium 3.9 meq/L (3.5-5.1)
--- NOTE | 2018-09-10 06:32 | P.PNOP ---
Subjective Interval history: POD 1 s/p IMN right hip doing well. states pain. has not been out of bed yet Physical Exam Vital signs: Vital Signs 09/09/18 11:20 09/09/18 11:35 09/09/18 11:50 Temperature 97.6 F Pulse Rate 96 H 78 73 Respiratory Rate 20 18 18 Blood Pressure 106/51 L 116/53 L 98/45 L Pulse Oximetry 93 L 96 100 09/09/18 12:15 09/09/18 12:45 09/09/18 16:00 Temperature 97.8 F 97.9 F Pulse Rate 76 70 79 Respiratory Rate 16 20 20 Blood Pressure 115/55 L 118/64 102/53 L Pulse Oximetry 100 100 98 09/09/18 19:29 09/09/18 19:45 09/09/18 20:16 Temperature 98.9 F Pulse Rate 69 82 Respiratory Rate 15 Blood Pressure 110/56 L Pulse Oximetry 94 L 98 09/09/18 20:27 09/10/18 00:00 09/10/18 00:55 Temperature 98.4 F Pulse Rate 71 65 Respiratory Rate 16 Blood Pressure 102/57 L Pulse Oximetry 98 98 09/10/18 04:45 Temperature 98.0 F Pulse Rate 55 L Respiratory Rate 15 Blood Pressure 94/51 L Pulse Oximetry 98 Intake & Output 09/09/18 09/09/18 09/10/18 06:59 18:59 06:59 Intake Total 2640 / 2640 590 / 590 Output Total 575 / 575 250 / 250 Balance 5 / 2065 340 / 340 Weight 76.81 kg Intake: IV 1999 50 / 50 NS Inj 1,000 ML @ 100 mls/hr IV 1999 .CONT .Q10H LEN Rx#:[id number] Ancef 1 GM Premix Inj 1 gm In 50 / 50 50 ml @ 200 mls/hr IV.SIG Q8H LEN Rx#:[id number] Oral 240 / 240 540 / 540 Anesthesia Amount 400 / 400 Output: Estimated Blood Loss 75 / 75 Urine Amount (Catheter) 500 / 500 250 / 250 Straight 500 / 500 250 / 250 Other: # Voids 0 1 Date of Last Bowel Movement 09/08/18 09/09/18 # Bowel Movements 0 Weight On Admission 76.81 kg Narrative: RLE: dressings clean and dry. intact. NVI - Urinary Catheter Management Straight Cath placed during this visit: yes Reason for continuing: Not indwelling catheter Insertion date: 09/10/18 Insertion time: 00:00 Results - Labs CBC & Chem 7: 09/10/18 04:10 09/10/18 04:10 Laboratory Results - last 24 hr 09/09/18 09/09/18 09/10/18 05:41 05:41 04:10 WBC 6.9 6.6 RBC 3.86 L 2.81 L Hgb 11.9 8.9 L D Hct 34.5 L 25.3 L MCV 89.3 90.0 MCH 30.7 31.6 MCHC 34.4 35.1 RDW 12.9 12.8 Plt Count 233 157 D MPV 8.2 8.4 Neut % (Auto) 77.9 H 77.2 H Lymph % (Auto) 11.4 12.5 [place] % (Auto) 10.0 H 10.0 H Eos % (Auto) 0.3 0.1 Baso % (Auto) 0.4 0.2 Neut # (Auto) 5.4 5.1 Lymph # (Auto) 0.8 L 0.8 L [place] # (Auto) 0.7 0.7 Eos # (Auto) 0.0 0.0 Baso # (Auto) 0.0 0.0 WBC Differential . . Differential Comment Auto diff final Auto diff final Sodium 142 Potassium 3.8 Chloride 107 Carbon Dioxide 25.6 Anion Gap 9 BUN 12 Creatinine 0.80 Estimated GFR 71 L Random Glucose 120 H Calcium 8.2 L Total Bilirubin 0.8 AST 18 ALT 29 Alkaline Phosphatase 60 Total Protein 6.3 L D Albumin 3.2 L 09/10/18 04:10 WBC RBC Hgb Hct MCV MCH MCHC RDW Plt Count MPV Neut % (Auto) Lymph % (Auto) [place] % (Auto) Eos % (Auto) Baso % (Auto) Neut # (Auto) Lymph # (Auto) [place] # (Auto) Eos # (Auto) Baso # (Auto) WBC Differential Differential Comment Sodium 142 Potassium 3.9 Chloride 107 Carbon Dioxide 27.2 Anion Gap 8 BUN 12 Creatinine 0.66 Estimated GFR 88 L Random Glucose 113 H Calcium 7.8 L Total Bilirubin AST ALT Alkaline Phosphatase Total Protein Albumin - Imaging Impressions Femur X-Ray 09/09/18 00:00 CONCLUSION: 1. Status post right femoral ORIF, as above. Assessment and Plan - Assessment and Plan 1) Right Subtroch Femur Fx s/p IMN - POD 1 -WBAT -daily dressing changes POD2 -DVT prophylaxis -CM for Rehab placement -f/u with [facility] or [facility] in 2 weeks [id number] Prescription Drug Monitoring Database has been queried and verified prior to prescribing the controlled substance. Acute pain exception. This patient has normal, predicted, physiological, and time limited response to an adverse mechanical stimulus associated with surgery, trauma, or acute illness as described in my notes. There is a lack of alternative treatment options other than to include the prescribed narcotic treatment for this condition.
[2018-09-10 08:01] LABS: Bilirubin,Urine Negative (Negative); Clarity,Urine Clear (Clear); Color,Urine Straw (Yellw/Straw); Glucose,Urine (UA) Negative (Negative); Leukocyte Esterase,Urine Negative (Negative); Nitrite,Urine Negative (Negative); Specific Gravity,Urine 1.005 (1.002-1.035)
[2018-09-10] MEDS: Sod Chloride 0.9% Inj 1,000 ML IV.CONT SCH ×2 (08:12→20:15)
[2018-09-10] MEDS ORDERED: Influenza (Quadrivalent) Vaccine 0.5 ML Syringe IM ONE (09:00)
--- NOTE | 2018-09-10 09:26 | P.PN ---
Subjective Interval history: Follow-up on patient with right hip fracture. Patient seen and examined. Patient encountered sitting up in bed eating breakfast. Appears comfortable. is at the bedside. She denies any acute medical complaints. Her right hip pain is controlled. She denies any fever or chills. She denies any chest pain or dyspnea. She denies any N/V or abdominal pain. She is asking if she can leave the hospital for a few hours and then come back. Physical Exam Vital signs: Vital Signs 09/09/18 11:20 09/09/18 11:35 09/09/18 11:50 Temperature 97.6 F Pulse Rate 96 H 78 73 Respiratory Rate 20 18 18 Blood Pressure 106/51 L 116/53 L 98/45 L Pulse Oximetry 93 L 96 100 09/09/18 12:15 09/09/18 12:45 09/09/18 16:00 Temperature 97.8 F 97.9 F Pulse Rate 76 70 79 Respiratory Rate 16 20 20 Blood Pressure 115/55 L 118/64 102/53 L Pulse Oximetry 100 100 98 09/09/18 19:29 09/09/18 19:45 09/09/18 20:16 Temperature 98.9 F Pulse Rate 69 82 Respiratory Rate 15 Blood Pressure 110/56 L Pulse Oximetry 94 L 98 09/09/18 20:27 09/10/18 00:00 09/10/18 00:55 Temperature 98.4 F Pulse Rate 71 65 Respiratory Rate 16 Blood Pressure 102/57 L Pulse Oximetry 98 98 09/10/18 03:58 09/10/18 04:45 09/10/18 08:00 Temperature 98.0 F 98.0 F Pulse Rate 54 L 55 L 66 Respiratory Rate 15 14 Blood Pressure 94/51 L 97/48 L Pulse Oximetry 98 100 Intake & Output 09/09/18 09/10/18 09/10/18 18:59 06:59 18:59 Intake Total 2640 / 2640 1590 / 1590 50 / 50 Output Total 575 / 575 250 / 250 Balance 2065 / 2065 1340 / 1340 50 / 50 Intake: IV 1999 1050 / 1050 50 / 50 NS Inj 1,000 ML @ 100 mls/hr IV 1999 1000 / 1000 .CONT .Q10H [facility] Rx#:[id number] Ancef 1 GM Premix Inj 1 gm In 50 / 50 50 / 50 50 ml @ 200 mls/hr IV.SIG Q8H LEN Rx#:[id number] Oral 240 / 240 540 / 540 Anesthesia Amount 400 / 400 Output: Estimated Blood Loss 75 / 75 Urine Amount (Catheter) 500 / 500 250 / 250 Straight 500 / 500 250 / 250 Other: # Voids 0 1 Date of Last Bowel Movement 09/08/18 09/09/18 # Bowel Movements 0 Narrative: GENERAL: WDWN female patient, INAD. Awake and alert. Sitting up in bed eating breakfast. SKIN: Warm and dry. No rash. HEENT: Atraumatic. Normocephalic. Pupils equal and round. No scleral icterus. No injection or drainage. No nasal bleeding or discharge. Mucous membranes pink and moist. NECK: Trachea midline. CARDIOVASCULAR: Regular rate and rhythm. RESPIRATORY: No accessory muscle use. Clear to auscultation. Breath sounds equal bilaterally. GASTROINTESTINAL: Abdomen soft, non-tender, nondistended. +BS. GENITOURINARY: Carranza catheter in place with clear yellow urine in bag. MUSCULOSKELETAL: Extremities without clubbing, cyanosis, or edema. Right hip s/ p IMN, dressings C/D/I. NV intact distal RLE. NEUROLOGICAL: Awake and alert. No obvious cranial nerve deficits. Motor grossly within normal limits except for limited exam RLE. Normal speech. PSYCHIATRIC: Calm and cooperative. - Urinary Catheter Management Straight Cath placed during this visit: yes Reason for continuing: Not indwelling catheter Insertion date: 09/10/18 Insertion time: 00:00 Indwelling Urethral Catheter Cath placed during this visit: yes Reason for continuing: Acute urinary retention Insertion date: 09/10/18 Insertion time: 07:30 Results - Labs CBC & Chem 7: 09/10/18 04:10 09/10/18 04:10 Laboratory Results - last 24 hr 09/10/18 09/10/18 09/10/18 04:10 04:10 06:30 WBC 6.6 RBC 2.81 L Hgb 8.9 L D Hct 25.3 L MCV 90.0 MCH 31.6 MCHC 35.1 RDW 12.8 Plt Count 157 D MPV 8.4 Neut % (Auto) 77.2 H Lymph % (Auto) 12.5 [place] % (Auto) 10.0 H Eos % (Auto) 0.1 Baso % (Auto) 0.2 Neut # (Auto) 5.1 Lymph # (Auto) 0.[address] [place] # (Auto) 0.7 Eos # (Auto) 0.0 Baso # (Auto) 0.0 WBC Differential . Differential Comment Auto diff final Sodium 142 Potassium 3.9 Chloride 107 Carbon Dioxide 27.2 Anion Gap 8 BUN 12 Creatinine 0.66 Estimated GFR 88 L Random Glucose 113 H Calcium 7.8 L Urine Color Straw Urine Clarity Clear Urine pH 6.0 Ur Specific [place] 1.005 Urine Protein Negative Urine Glucose (UA) Negative Urine Ketones Negative Urine Occult Blood Negative Urine Nitrate Negative Urine Bilirubin Negative Urine Urobilinogen Less than 2 Ur Leukocyte Esterase Negative Urine WBC Less than 1 Ur Microscopic Review Not Reportable - Imaging Impressions Femur X-Ray 09/09/18 00:00 CONCLUSION: 1. Status post right femoral ORIF, as above. - Procedures - Preoperative Diagnosis (1) Closed intertrochanteric fracture Date of procedure: 09/09/18 Procedure: Right hip reduction and intramedullary nail fixation Anesthesia: GETA Surgeon: Jayy Leong MD Balance Wheel Facer: CAIT Pike PA-C The surgical procedure was assisted by my physician server service assistant. My P.A. presence was necessary throughout this case for the manipulation and positioning of the surgical extremity. My P.A. was assisting me throughout the duration of this procedure. The skill set of a physician server service assistant was medically necessary to complete this procedure. During the surgical case the civil engineering technician was working at the back table and the physician server service assistant was directly assisting me. Operation and Findings: Implants used: [11.5]mm x [380]mm Senait troch nail Plan of activity: Weight-bear as tolerated Patient was seen and evaluated preoperatively. The patient has significant hip pain from proximal femur fracture. The risk and benefits of surgery were discussed in depth with the patient to include bleeding, infection, nonunion, malunion, need for hip replacement, painful hardware, as well as medical competitions including blood clots, stroke, heart attack, and . Informed consent was obtained. Operative site was marked. Patient was brought to the operating room and placed on fracture table. IV sedation was administered by anesthesiologist. Timeout procedure was performed. Hip and leg were prepped with alcohol followed by DuraPrep and draped in the usual sterile fashion. IV antibiotics were given prior to incision. Procedure began with reduction of fracture. Traction was applied. The leg was manipulated to achieve reduction. There was an intertrochanteric fracture extending down to the subtrochanteric region. Excellent reduction was achieved. Fluoroscopy was used to confirm reduction. A three inch incision was made proximal to the trochanter. Subcutaneous tissue was dissected bluntly. Guidepin was placed at the tip of the trochanter and advanced into the femoral canal. Fluoroscopy confirmed appropriate guidepin placement. A opening reamer was placed over the guidepin. A long ball tipped guide pin was now placed down the femoral canal into the center of the distal femur. The nail length was now measured. Fluoroscopy confirmed appropriate guidepin placement. Flexible reamers were now passed over the guidepin to ream the intramedullary canal. The nail was attached to the insertion handle. Nail was now placed over the guidepin into the femoral canal. Fluoroscopy confirmed appropriate nail placement. A second incision was made over the lateral thigh. Cannulas were placed through the insertion handle down to the femur. Guidepin was now placed through the femoral nail into the center of the femoral head. Fluoroscopy confirmed appropriate guidepin placement. Screw length was measured. Cannulated drill was placed over the guidepin. Appropriate length lag screw was now placed. Traction was released and compression was applied. The set screw was now tightened in dynamic mode. Next, using perfect [place] technique two distal interlocking screws were placed. Screw holes were predrilled and screw lengths were measured. Final fluoroscopy revealed well aligned fracture with well-placed hardware. Incision was closed with 3-0 Vicryl and lindsey. Sterile dressings were applied. Patient was awakened and transferred to recovery room. Documented By: Jayy Leong MD 09/09/18 1051 Signed By: <Electronically signed by Jayy Leong MD> 09/09/18 1052 Assessment and Plan - Assessment (1) Fall Code(s): W19.XXXA - Unspecified fall, initial encounter Status: Acute (2) Hip fracture, right Code(s): S72.001A - Fracture of unspecified part of neck of right femur, initial encounter for closed fracture Status: Acute (3) Leukocytosis Code(s): D72.829 - Elevated white blood cell count, unspecified Status: Acute (4) Dementia Code(s): F03.90 - Unspecified dementia without behavioral disturbance Status: Acute - Plan 72-year-old female with a PMH of HTN, Hyperlipidemia and Dementia who was brought to the ER by EMS for right hip pain after a fall. Right intratrochanteric hip fracture X-rays of the right hip reveal comminuted intratrochanteric hip fracture, pelvis intact -Orthopedic service following, appreciate assistance. S/p Right hip IMN -per Ortho, WBAT, daily dressing changes to begin tomorrow. Follow up with ortho in 2 weeks. -Pain management with bowel regimen Anemia, suspect postoperative anemia acute blood loss Hgb dropped from 11.9 to 8.9 -no e/o active bleeding at this time -monitor H/H s/p fall Patient reports mechanical fall while getting out of the vehicle No reported loss of consciousness or head trauma -Continue with PT/OT -fall precautions Leukocytosis, suspect reactive Patient is afebrile, does not appear toxic -Resolved Hypertension now hypotensive, BP 97/48, MAP 64 -hold home Cozaar -give IVF -monitor BP and adjust treatment accordingly Dementia History of frontal lobe dementia -At baseline -Monitor DVT prophylaxis -Lovenox per Ortho service Code Status: Full Discussed Condition With: patient, at bedside, Dr. Espinoza Discharge Planning: Not ready for discharge. Likely placement at SNF. CM assisting.
[2018-09-10] MEDS: Enoxaparin Inj 40 MG/0.4 ML Syringe SQ SCH (09:34)
[2018-09-10] MEDS: Calcium/Vitamin D 250/125 MG Tablet PO SCH ×3 (09:34→20:15)
[2018-09-10] MEDS: Senna/Docusate Sodium 8.6/50 MG Tablet PO SCH ×2 (09:34→21:53)
[2018-09-11] MEDS: Sod Chloride 0.9% Inj 1,000 ML IV.CONT SCH ×2 (03:45→13:49)
[2018-09-11 05:58] LABS: Baso % (Auto) 0.4 % (0.0-2.0); Eos # (Auto) 0.1 th/mm3 (0.0-0.4); Eos % (Auto) 0.8 % (0.0-4.0); Hematocrit 24.9 % (35.0-46.0); Hemoglobin 8.9 gm/dL (11.6-15.3); Lymph # (Auto) 1.3 th/mm3 (1.0-4.8); Lymph % (Auto) 20.6 % (9.0-44.0); Mean Corpuscular HGB Conc 35.9 % (32.0-36.0); Mean Corpuscular Volume 89.1 fL (80.0-100.0); Mean Platelet Volume 8.2 fL (7.0-11.0); Mono # (Auto) 0.7 th/mm3 (0.0-0.9); Mono % (Auto) 11.7 % (0.0-8.0); Neut # (Auto) 4.2 th/mm3 (1.8-7.7); Neut % (Auto) 66.5 % (16.0-70.0); Platelet Count 163 th/mm3 (150-450); Red Blood Count 2.79 mil/mm3 (4.00-5.30); Red Cell Distribution Width 12.5 % (11.6-17.2); White Blood Count 6.3 th/mm3 (4.0-11.0)
--- NOTE | 2018-09-11 09:53 | P.DS ---
Date of admission: 09/08/18 22:18 Primary care physician: JORDI ALEMAN Attending physician on discharge: Dereje Anna Anticipated date of discharge: 09/11/18 Brief History from admission: This is a 72-year-old female with a PMH of HTN, Hyperlipidemia and Dementia who was brought to the ER by EMS for right hip pain after a fall. Pt poor historian due to underlying dementia. Per at bedside, they are here from out of town for a reunion and pt had fall while getting out of the car. No reported LOC or head trauma. On arrival, P1 , HR 68, O2 sat 100% on 2L NC, Afebrile. WBC 11.6. INR 1.0. Chemistry essentially unremarkable except for GFR 56. CXR linear atelectasis/scarring in left lingula. X-ray comminuted intertrochanteric fracture right hip. Pelvis X-ray pelvis intact, right hip fracture. S/p eval by Dr. Armas, plan is for surgical intervention in am. Patient update on day of discharge: Patient is doing well. at bedside. No acute concerns. Orthopedic surgery cleared for discharge to [facility]. DS: Medications - Discharge Medications Prescriptions: alum-mag hydroxide-simeth [Maalox Maximum Strength] 5 ml PO Q6H PRN 30 Days ml PRN Reason: GI upset hydrocodone-acetaminophen [[place]] 1 tab PO Q4H #40 tab rivaroxaban [Xarelto] 10 mg PO DAILY #14 tab DS: Summary Hospital Course: 72-year-old female with a PMH of HTN, Hyperlipidemia and Dementia who was brought to the ER by EMS for right hip pain after a fall. Right intratrochanteric hip fracture X-rays of the right hip reveal comminuted intratrochanteric hip fracture, pelvis intact -Orthopedic service following, appreciate assistance. S/p Right hip IMN -per Ortho, WBAT, daily dressing changes to begin on 09/11/2018. Follow up with ortho in 2 weeks. -Pain management with bowel regimen Anemia, suspect postoperative anemia acute blood loss Hgb dropped from 11.9 to 8.9 -no e/o active bleeding at this time s/p fall Patient reports mechanical fall while getting out of the vehicle No reported loss of consciousness or head trauma -Continue with PT/OT -fall precautions Hypertension BP has been on the lower end. Will d/c ARB for now. Dementia History of frontal lobe dementia -At baseline DVT prophylaxis -Xarelto per Ortho service Discussed with Orthopedic surgery PA (Mansi) who cleared for discharge. I discussed with patient and her as well. - Time Spent with Patient Total time spent providing and/or coordinating discharge services: Less than 30 minutes - Quality: VTE Deep Vein Thrombosis/Pulmonary Embolism Present on Admission: No Exam Vital signs: Vital Signs 09/10/18 12:00 09/10/18 16:00 09/10/18 19:40 Temperature 99.1 F 97.6 F 98.2 F Pulse Rate 72 84 84 Respiratory Rate 16 16 16 Blood Pressure 110/58 L 99/51 L 116/55 L Pulse Oximetry 100 98 96 09/10/18 23:50 09/11/18 04:15 09/11/18 08:00 Temperature 99.6 F 99.0 F 97.2 F L Pulse Rate 87 84 77 Respiratory Rate 15 15 14 Blood Pressure 100/52 L 100/53 L 105/51 L Pulse Oximetry 94 L 98 98 Intake & Output 09/10/18 09/11/18 09/11/18 18:59 06:59 18:59 Intake Total 1100 / 1100 780 / 780 Output Total 550 / 550 1350 / 1350 Balance 550 / 550 -570 / -570 Intake: IV 1100 / 1100 NS Inj 1,000 ML @ 100 mls/hr IV 1000 / 1000 .CONT .Q10H LEN Rx#:[id number] Ancef 1 GM Premix Inj 1 gm In 100 / 100 50 ml @ 200 mls/hr IV.SIG Q8H LEN Rx#:[id number] Oral 780 / 780 Output: Urine 1350 / 1350 Urine Amount (Catheter) 550 / 550 Indwelling Urethral Catheter 550 / 550 Other: Date of Last Bowel Movement 09/08/18 09/11/18 # Bowel Movements 2 0 # Incontinent Bowel Movements 1 Results Procedures completed during hospitalization: - Preoperative Diagnosis (1) Closed intertrochanteric fracture Date of procedure: 09/09/18 Procedure: Right hip reduction and intramedullary nail fixation Anesthesia: GETA Surgeon: Jayy Leong MD Wirer Helper: CAIT Pike PA-C The surgical procedure was assisted by my physician environmental assistant. My P.A. presence was necessary throughout this case for the manipulation and positioning of the surgical extremity. My P.A. was assisting me throughout the duration of this procedure. The skill set of a physician environmental assistant was medically necessary to complete this procedure. During the surgical case the medical or surgical instrument maker was working at the back table and the physician environmental assistant was directly assisting me. Operation and Findings: Implants used: [11.5]mm x [380]mm Senait troch nail Plan of activity: Weight-bear as tolerated Patient was seen and evaluated preoperatively. The patient has significant hip pain from proximal femur fracture. The risk and benefits of surgery were discussed in depth with the patient to include bleeding, infection, nonunion, malunion, need for hip replacement, painful hardware, as well as medical competitions including blood clots, stroke, heart attack, and . Informed consent was obtained. Operative site was marked. Patient was brought to the operating room and placed on fracture table. IV sedation was administered by anesthesiologist. Timeout procedure was performed. Hip and leg were prepped with alcohol followed by DuraPrep and draped in the usual sterile fashion. IV antibiotics were given prior to incision. Procedure began with reduction of fracture. Traction was applied. The leg was manipulated to achieve reduction. There was an intertrochanteric fracture extending down to the subtrochanteric region. Excellent reduction was achieved. Fluoroscopy was used to confirm reduction. A three inch incision was made proximal to the trochanter. Subcutaneous tissue was dissected bluntly. Guidepin was placed at the tip of the trochanter and advanced into the femoral canal. Fluoroscopy confirmed appropriate guidepin placement. A opening reamer was placed over the guidepin. A long ball tipped guide pin was now placed down the femoral canal into the center of the distal femur. The nail length was now measured. Fluoroscopy confirmed appropriate guidepin placement. Flexible reamers were now passed over the guidepin to ream the intramedullary canal. The nail was attached to the insertion handle. Nail was now placed over the guidepin into the femoral canal. Fluoroscopy confirmed appropriate nail placement. A second incision was made over the lateral thigh. Cannulas were placed through the insertion handle down to the femur. Guidepin was now placed through the femoral nail into the center of the femoral head. Fluoroscopy confirmed appropriate guidepin placement. Screw length was measured. Cannulated drill was placed over the guidepin. Appropriate length lag screw was now placed. Traction was released and compression was applied. The set screw was now tightened in dynamic mode. Next, using perfect [place] technique two distal interlocking screws were placed. Screw holes were predrilled and screw lengths were measured. Final fluoroscopy revealed well aligned fracture with well-placed hardware. Incision was closed with 3-0 Vicryl and lindsey. Sterile dressings were applied. Patient was awakened and transferred to recovery room. Documented By: Jayy Leong MD 09/09/18 1051 Signed By: <Electronically signed by Jayy Leong MD> 09/09/18 1052 Labs on day of discharge: Labs from last 24 hours 09/11/18 05:41 WBC 6.3 RBC 2.79 L Hgb 8.9 L Hct 24.9 L MCV 89.1 MCH 32.0 MCHC 35.9 RDW 12.5 Plt Count 163 MPV 8.2 Neut % (Auto) 66.5 Lymph % (Auto) 20.6 [place] % (Auto) 11.7 H Eos % (Auto) 0.8 Baso % (Auto) 0.4 Neut # (Auto) 4.2 Lymph # (Auto) 1.3 [place] # (Auto) 0.7 Eos # (Auto) 0.1 Baso # (Auto) 0.0 WBC Differential . Differential Comment Auto diff final - Impressions ITS Impressions Chest X-Ray 09/08/18 19:01 CONCLUSION: 1. Linear atelectasis/scarring in the left lingula. 2. Lungs are otherwise clear. Pelvis X-Ray 09/08/18 19:02 CONCLUSION: 1. Comminuted intratrochanteric fracture of the right hip. 2. Pelvis itself is intact. Femur X-Ray 09/09/18 00:00 CONCLUSION: 1. Status post right femoral ORIF, as above. Discharge Plan - Discharge Disposition Patient Disposition: [facility] Re[facility] Inpatient - Discharge Condition Condition: Good - Discharge Order Discharge Orders: Discharge Order (Routine); Ordered 09/11/18 Ordered By: Dereje Anna Orthopedic Clear for Discharge (Routine); Ordered 09/11/18 Ordered By: Sandra Felder (Ashley)pper - Discharge Details Anticipated Discharge Date: 09/11/18 - Physicians Team Attending Provider: Dereje Anna Other Providers: Vineet Armas MD ; Jayy Leong MD
[2018-09-11] MEDS: Calcium/Vitamin D 250/125 MG Tablet PO SCH ×2 (10:22→13:49)
[2018-09-11] MEDS: Senna/Docusate Sodium 8.6/50 MG Tablet PO SCH (10:22)
[2018-09-11] MEDS: Enoxaparin Inj 40 MG/0.4 ML Syringe SQ SCH (10:23)
--- NOTE | 2018-09-11 10:32 | P.PNOP ---
Subjective Interval history: Patient is awake and slightly confused sitting in chair. Patient is frustrated because she will not go to high school reunion tonight. Plan of care was discussed with . Most likely [facility] Physical Exam Vital signs: Vital Signs 09/10/18 12:00 09/10/18 16:00 09/10/18 19:40 Temperature 99.1 F 97.6 F 98.2 F Pulse Rate 72 84 84 Respiratory Rate 16 16 16 Blood Pressure 110/58 L 99/51 L 116/55 L Pulse Oximetry 100 98 96 09/10/18 23:50 09/11/18 04:15 09/11/18 08:00 Temperature 99.6 F 99.0 F 97.2 F L Pulse Rate 87 84 77 Respiratory Rate 15 15 14 Blood Pressure 100/52 L 100/53 L 105/51 L Pulse Oximetry 94 L 98 98 Intake & Output 09/10/18 09/11/18 09/11/18 18:59 06:59 18:59 Intake Total 1100 / 1100 780 / 780 Output Total 550 / 550 1350 / 1350 Balance 550 / 550 -570 / -570 Intake: IV 1100 / 1100 NS Inj 1,000 ML @ 100 mls/hr IV 1000 / 1000 .CONT .Q10H [facility] Rx#:[id number] Ancef 1 GM Premix Inj 1 gm In 100 / 100 50 ml @ 200 mls/hr IV.SIG Q8H L[facility] Rx#:[id number] Oral 780 / 780 Output: Urine 1350 / 1350 Urine Amount (Catheter) 550 / 550 Indwelling Urethral Catheter 550 / 550 Other: Date of Last Bowel Movement 09/08/18 09/11/18 # Bowel Movements 2 0 # Incontinent Bowel Movements 1 Narrative: RLE: Dressing dry and intact, mild palpable tenderness to the thigh. Range of motion not tested secondary to pain, no calf pain, negative Homans sign, NVI - Urinary Catheter Management Straight Cath placed during this visit: yes Reason for continuing: Not indwelling catheter Insertion date: 09/10/18 Insertion time: 00:00 Indwelling Urethral Catheter Cath placed during this visit: yes, but has since been removed by the nurse Reason for continuing: Acute urinary retention Insertion date: 09/10/18 Insertion time: 07:30 Removal date: 09/11/18 Removal time: 06:30 Results - Labs CBC & Chem 7: 09/11/18 05:41 09/10/18 04:10 Laboratory Results - last 24 hr 09/11/18 05:41 WBC 6.3 RBC 2.79 L Hgb 8.9 L Hct 24.9 L MCV 89.1 MCH 32.0 MCHC 35.9 RDW 12.5 Plt Count 163 MPV 8.2 Neut % (Auto) 66.5 Lymph % (Auto) 20.6 [place] % (Auto) 11.7 H Eos % (Auto) 0.8 Baso % (Auto) 0.4 Neut # (Auto) 4.2 Lymph # (Auto) 1.3 [place] # (Auto) 0.7 Eos # (Auto) 0.1 Baso # (Auto) 0.0 WBC Differential . Differential Comment Auto diff final - Procedures 09/09/18 Right hip reduction and intramedullary nail fixation, Jayy Potter MD Assessment and Plan - Ortho Post Op Day # 2 - Assessment and Plan 1) Right Subtroch Femur Fx s/p IMN - POD 2 -WBAT -daily dressing changes -DVT prophylaxis, xarelto -CM for Rehab placement, [facility] -f/u with [facility] or [facility] in 2 weeks - clear for d/c from orthopedic standpoint [facility] Prescription Drug Monitoring Database has been queried and verified prior to prescribing the controlled substance. Acute pain exception. This patient has normal, predicted, physiological, and time limited response to an adverse mechanical stimulus associated with surgery, trauma, or acute illness as described in my notes. There is a lack of alternative treatment options other than to include the prescribed narcotic treatment for this condition.
[2018-09-11 12:06] VITALS: BP 110/55; PULSE 75; RESP 16; TEMP 97.4; O2SAT 99
== END 2018-09-11 13:54 ==
LOC: NEPC 18:42 → NEDA 22:18 → NEPGCP 22:59 → N06 09-09 07:36
PROVIDERS: ADMIT Hospitalist; ATTEND Hospitalist
PROC: ORIFHIP (2018-09-09 09:35)